=== PATIENT | female | born 1935 | race Caucasian/White ===

== ENCOUNTER 2023-08-03 11:42 | Emergency (ER) | payer BC ==
[~2023-08-03] VITALS: Ht 160 cm; Wt 55.0 kg
[2023-08-03 11:46] VITALS: BP 126/72; PULSE 83; RESP 18; TEMP 98.2; O2SAT 98
[2023-08-03] MEDS ORDERED: AZIT250T MT (13:10)
== END 2023-08-03 14:55 | disposition home or self-care (01) ==
LOC: ER 11:42
DX: R91.8 Other nonspecific abnormal finding of lung field (principal); I10 Essential (primary) hypertension; Z88.0 Allergy status to penicillin
CPT/HCPCS: 71045; 99283